=== PATIENT | male | born 1985 | race Caucasian/White ===

== ENCOUNTER 2017-10-06 14:31 | Inpatient (IN) | payer OTHER ==
[~2017-10-06] VITALS: Ht 180.3 cm; Wt 94.3 kg
[2017-10-06] MEDS ORDERED: LOSA50TA37 PO (14:44)
[2017-10-06 16:52] LABS: APPEARANCE,URINE CLEAR (CLEAR); GLUCOSE, URINE (UA) NEGATIVE (NEGATIVE); KETONES,URINE NEGATIVE (NEGATIVE); LEUKOCYTE ESTERASE ,URINE NEGATIVE (NEGATIVE); OCCULT BLOOD,URINE NEGATIVE (NEGATIVE); PH,URINE 7.5 (5.0-8.0); PROTEIN,URINE NEGATIVE (NEGATIVE)
[2017-10-06 16:55] LABS: ANION GAP 10 mmol/L (8-16); BASOPHILS # (AUTO) 0.01 K/uL (0.00-0.20); BASOPHILS % (AUTO) 0.1 % (0.0-2.0); CALCIUM, TOTAL 7.7 mg/dL (8.8-10.5); CARBON DIOXIDE 26 mmol/L (22-29); CHLORIDE 98 mmol/L (98-107); CREATININE 1.09 mg/dL (0.60-1.30); EOSINOPHILS % (AUTO) 0.69 % (1.0-6.0); GLOMERULAR FILTR. RATE CALC > 60 mL/min (>60); HEMATOCRIT 39.2 % (41-53); HEMOGLOBIN 12.2 g/dL (13.5-17.5); LYMPHOCYTES # (AUTO) 1.2 K/uL (1.0-4.8); LYMPHOCYTES % (AUTO) 8.3 % (22.0-44.0); MEAN CORPUSCULAR HEMOGLOBIN 23.7 pg (26.0-34.0); MEAN CORPUSCULAR HGB CONC 31.1 G/dL (31.0-37.0); MEAN CORPUSCULAR VOLUME 76 fL (80-100); MONOCYTES # (AUTO) 0.8 K/uL (0.1-1.0); MONOCYTES % (AUTO) 5.8 % (2.0-9.0); NEUTROPHILS # (AUTO) 12.1 K/uL (1.8-7.7); NEUTROPHILS % (AUTO) 85.2 % (40.0-70.0); PLATELET COUNT (AUTO) 246 K/uL (150-450); POTASSIUM 3.1 mmol/L (3.5-5.1); RED BLOOD CELL COUNT(AUTO) 5.14 MIL/uL (4.50-5.90); RED CELL DISTRIBUTION WIDTH 18.7 % (11.5-14.5); SODIUM SERUM 134 mmol/L (136-145); UREA NITROGEN, BLOOD 11 mg/dL (7-18); WHITE BLOOD COUNT (AUTO) 14.3 K/uL (4.5-11.0)
[2017-10-06 17:00] LABS: ADD UA MICROSCOPIC NO
[2017-10-06 17:06] LABS: INR 1.2 (0.9-1.1); PROTHROMBIN TIME 12.3 SEC (9.4-11.6)
[2017-10-06 17:15] LABS: B-TYPE NATRIURETIC PEPTIDE 2020 pg/mL (0-100)
[2017-10-06 17:18] LABS: ALANINE AMINOTRANSFERASE 521 U/L (12-78); ALBUMIN 2.5 g/dL (3.4-5.0); ASPARTATE AMINOTRANSFERASE 90 U/L (15-37); BILIRUBIN,TOTAL 2.4 mg/dL (0.1-1.0); CREATINE KINASE MB 1.9 ng/mL (0-5); CREATINE KINASE, TOTAL 98 U/L (39-308); TOTAL PROTEIN, SERUM 7.4 g/dL (6.4-8.2)
[2017-10-06 17:51] LABS: RBC MORPHOLOGY COMMENT ABNORMAL RBC MORPH
[2017-10-06] MEDS ORDERED: ASPIRIN 325 MG TABLET PO ONE (19:30)
[2017-10-06] MEDS ORDERED: PIPERACILLIN/TAZO 3.375 GM/D5W 50 ML IV ONE (19:30)
[2017-10-06] MEDS ORDERED: FUROSEMIDE 40 MG/4 ML VIAL IVP ONE (19:30)
[2017-10-06] MEDS ORDERED: HYDROCODONE/ACETAMINOPHEN 5-325 MG TABLET PO PRN (20:30)
[2017-10-06] MEDS ORDERED: POTASSIUM CHLORIDE 20 MEQ ER TABLET PO ONE (20:30)
[2017-10-06] MEDS ORDERED: ACETAMINOPHEN 325 MG TABLET PO PRN (20:30)
[2017-10-06] MEDS ORDERED: ONDANSETRON HCL 4 MG/2 ML VIAL IVP PRN (20:30)
[2017-10-06] MEDS ORDERED: 0.9% SODIUM CHLORIDE 10 ML SYRINGE IVP PRN (20:30)
[2017-10-06] MEDS ORDERED: MAGNESIUM HYDROXIDE SUSPENSION 30 ML UDCUP PO PRN (21:15)
[2017-10-06 22:06] VITALS: BP 147/97
[2017-10-06] MEDS: ATORVASTATIN CALCIUM 20 MG TABLET PO SCH (22:35)
[2017-10-06] MEDS: CARVEDILOL 6.25 MG TABLET PO SCH (22:36)
[2017-10-07] VITALS (7 sets, daily range): BP systolic 109–128; BP diastolic 61–85
[2017-10-07] MEDS ORDERED: INFLUENZA VIRUS VACCINE QVS 2017-18 (3YR+)/PF 60 MCG/0.5 ML SYRINGE IM ONE (00:30)
[2017-10-07] MEDS: HEPARIN SODIUM,PORCINE 5,000 UNITS/ML VIAL SQ SCH ×3 (00:46→16:17)
[2017-10-07 07:06] LABS: ALANINE AMINOTRANSFERASE 401 U/L (12-78); ALBUMIN 2.3 g/dL (3.4-5.0); ANION GAP 10 mmol/L (8-16); ASPARTATE AMINOTRANSFERASE 69 U/L (15-37); BILIRUBIN,TOTAL 2.4 mg/dL (0.1-1.0); CALCIUM, TOTAL 7.6 mg/dL (8.8-10.5); CARBON DIOXIDE 25 mmol/L (22-29); CHLORIDE 100 mmol/L (98-107); CREATININE 1.09 mg/dL (0.60-1.30); GLOMERULAR FILTR. RATE CALC > 60 mL/min (>60); POTASSIUM 3.7 mmol/L (3.5-5.1); SODIUM SERUM 135 mmol/L (136-145); TOTAL PROTEIN, SERUM 7.1 g/dL (6.4-8.2); UREA NITROGEN, BLOOD 14 mg/dL (7-18)
[2017-10-07] MEDS: FUROSEMIDE 40 MG/4 ML VIAL IVP SCH (08:40)
[2017-10-07] MEDS: CARVEDILOL 6.25 MG TABLET PO SCH ×2 (08:41→20:25)
[2017-10-07] MEDS: PANTOPRAZOLE SODIUM 40 MG DR TABLET PO SCH (08:41)
[2017-10-07] MEDS: ASPIRIN 81 MG CHEWABLE TABLET PO SCH (08:41)
[2017-10-07] MEDS: DOCUSATE SODIUM 100 MG CAPSULE PO SCH ×2 (08:41→20:25)
[2017-10-07 09:34] LABS: BASOPHILS % (AUTO) 0.5 % (0.0-2.0); HEMATOCRIT 37.7 % (41-53); HEMOGLOBIN 11.9 g/dL (13.5-17.5); LYMPHOCYTES # (AUTO) 1.8 K/uL (1.0-4.8); LYMPHOCYTES % (AUTO) 13.6 % (22.0-44.0); MEAN CORPUSCULAR HGB CONC 31.5 G/dL (31.0-37.0); MEAN CORPUSCULAR VOLUME 76 fL (80-100); MONOCYTES # (AUTO) 0.5 K/uL (0.1-1.0); MONOCYTES % (AUTO) 3.4 % (2.0-9.0); NEUTROPHILS # (AUTO) 10.7 K/uL (1.8-7.7); NEUTROPHILS % (AUTO) 80.5 % (40.0-70.0); PLATELET COUNT (AUTO) 277 K/uL (150-450); RED BLOOD CELL COUNT(AUTO) 4.96 MIL/uL (4.50-5.90); RED CELL DISTRIBUTION WIDTH 18.7 % (11.5-14.5); WHITE BLOOD COUNT (AUTO) 13.3 K/uL (4.5-11.0)
[2017-10-07] MEDS: POTASSIUM CHLORIDE 20 MEQ ER TABLET PO PRN (09:54)
[2017-10-07 10:17] LABS: RBC MORPHOLOGY COMMENT ABNORMAL RBC MORPH
[2017-10-07] MEDS: ATORVASTATIN CALCIUM 20 MG TABLET PO SCH (20:25)
[2017-10-08 04:55] VITALS: BP 133/68
[2017-10-08 07:35] LABS: BASOPHILS % (AUTO) 0.3 % (0.0-2.0); EOSINOPHILS % (AUTO) 1.3 % (1.0-6.0); HEMATOCRIT 39.4 % (41-53); HEMOGLOBIN 12.4 g/dL (13.5-17.5); LYMPHOCYTES # (AUTO) 2.2 K/uL (1.0-4.8); LYMPHOCYTES % (AUTO) 14.4 % (22.0-44.0); MEAN CORPUSCULAR HEMOGLOBIN 23.9 pg (26.0-34.0); MEAN CORPUSCULAR HGB CONC 31.5 G/dL (31.0-37.0); MEAN CORPUSCULAR VOLUME 76 fL (80-100); MONOCYTES % (AUTO) 6.4 % (2.0-9.0); NEUTROPHILS # (AUTO) 12.1 K/uL (1.8-7.7); NEUTROPHILS % (AUTO) 77.6 % (40.0-70.0); RED CELL DISTRIBUTION WIDTH 18.9 % (11.5-14.5); WHITE BLOOD COUNT (AUTO) 15.6 K/uL (4.5-11.0)
[2017-10-08 07:51] VITALS: BP 130/71
[2017-10-08 07:58] LABS: ANION GAP 7 mmol/L (8-16); CARBON DIOXIDE 25 mmol/L (22-29); CHLORIDE 98 mmol/L (98-107); GLOMERULAR FILTR. RATE CALC > 60 mL/min (>60); POTASSIUM 4.3 mmol/L (3.5-5.1); SODIUM SERUM 130 mmol/L (136-145); UREA NITROGEN, BLOOD 19 mg/dL (7-18)
[2017-10-08 08:38] LABS: PLATELET COUNT (AUTO) 281 K/uL (150-450); RBC MORPHOLOGY COMMENT ABNORMAL RBC MORPH
[2017-10-08] MEDS: CARVEDILOL 6.25 MG TABLET PO SCH (09:00)
[2017-10-08] MEDS: DOCUSATE SODIUM 100 MG CAPSULE PO SCH ×2 (09:01→21:17)
[2017-10-08] MEDS: HEPARIN SODIUM,PORCINE 5,000 UNITS/ML VIAL SQ SCH ×4 (09:01→23:34)
[2017-10-08] MEDS: ASPIRIN 81 MG CHEWABLE TABLET PO SCH (09:01)
[2017-10-08] MEDS: PANTOPRAZOLE SODIUM 40 MG DR TABLET PO SCH (09:01)
[2017-10-08] MEDS: FUROSEMIDE 40 MG/4 ML VIAL IVP SCH (09:02)
[2017-10-08] MEDS: MUPIROCIN CALCIUM 2% 22 GM OINTMENT NASAL SCH ×2 (10:51→21:18)
[2017-10-08 11:37] VITALS: BP 86/60
[2017-10-08 13:01] VITALS: BP 98/62
[2017-10-08] MEDS ORDERED: AMIODARONE HCL 150 MG in DEXTROSE 5%-WATER 97 ML IV ONE (13:15)
[2017-10-08] MEDS ORDERED: AMIODARONE HCL 360 MG in DEXTROSE 5%-WATER 242.8 ML IV ONE ×2 (13:15→21:00)
[2017-10-08] MEDS ORDERED: SODIUM CHLORIDE 0.9% 250 ML IV ONE ×3 (14:30→16:15)
[2017-10-08 16:10] VITALS: BP 105/73
[2017-10-08] MEDS ORDERED: AMIODARONE HCL 540 MG in DEXTROSE 5%-WATER 239.2 ML IV ONE (19:15)
[2017-10-08 20:06] VITALS: BP 98/74
[2017-10-08] MEDS: ATORVASTATIN CALCIUM 20 MG TABLET PO SCH (21:17)
[2017-10-08] MEDS ORDERED: SODIUM CHLORIDE 0.9% 500 ML IV ONE (21:24)
[2017-10-09] VITALS (7 sets, daily range): BP systolic 95–138; BP diastolic 65–83
[2017-10-09] MEDS: ACETAMINOPHEN 325 MG TABLET PO PRN (00:02)
[2017-10-09] MEDS ORDERED: AMIODARONE HCL 540 MG in DEXTROSE 5%-WATER 239.2 ML IV ONE (03:00)
[2017-10-09 06:27] LABS: BASOPHILS % (AUTO) 0.6 % (0.0-2.0); EOSINOPHILS % (AUTO) 1.1 % (1.0-6.0); HEMATOCRIT 37.3 % (41-53); HEMOGLOBIN 11.8 g/dL (13.5-17.5); LYMPHOCYTES # (AUTO) 2.8 K/uL (1.0-4.8); LYMPHOCYTES % (AUTO) 20.8 % (22.0-44.0); MEAN CORPUSCULAR HEMOGLOBIN 24.1 pg (26.0-34.0); MEAN CORPUSCULAR HGB CONC 31.8 G/dL (31.0-37.0); MEAN CORPUSCULAR VOLUME 76 fL (80-100); MONOCYTES % (AUTO) 7.6 % (2.0-9.0); NEUTROPHILS # (AUTO) 9.4 K/uL (1.8-7.7); NEUTROPHILS % (AUTO) 69.9 % (40.0-70.0); PLATELET COUNT (AUTO) 260 K/uL (150-450); RED BLOOD CELL COUNT(AUTO) 4.91 MIL/uL (4.50-5.90); RED CELL DISTRIBUTION WIDTH 18.8 % (11.5-14.5); WHITE BLOOD COUNT (AUTO) 13.5 K/uL (4.5-11.0)
[2017-10-09 06:38] LABS: ANION GAP 7 mmol/L (8-16); CALCIUM, TOTAL 7.9 mg/dL (8.8-10.5); CARBON DIOXIDE 24 mmol/L (22-29); CHLORIDE 99 mmol/L (98-107); GLOMERULAR FILTR. RATE CALC > 60 mL/min (>60); PHOSPHORUS 3.7 mg/dL (2.5-4.9); POTASSIUM 4.3 mmol/L (3.5-5.1); SODIUM SERUM 130 mmol/L (136-145); UREA NITROGEN, BLOOD 27 mg/dL (7-18)
[2017-10-09] MEDS ORDERED: ADENOSINE 3 MG/ML 2 ML VIAL IVP ONE (09:00)
[2017-10-09] MEDS ORDERED: SODIUM CHLORIDE 0.9% 250 ML IV ONE (09:00)
[2017-10-09] MEDS: HEPARIN SODIUM,PORCINE 5,000 UNITS/ML VIAL SQ SCH ×3 (09:36→23:31)
[2017-10-09] MEDS: ASPIRIN 81 MG CHEWABLE TABLET PO SCH (09:37)
[2017-10-09] MEDS: DOCUSATE SODIUM 100 MG CAPSULE PO SCH ×2 (09:37→20:21)
[2017-10-09] MEDS: PANTOPRAZOLE SODIUM 40 MG DR TABLET PO SCH (09:37)
[2017-10-09] MEDS: MUPIROCIN CALCIUM 2% 22 GM OINTMENT NASAL SCH ×2 (09:38→20:21)
[2017-10-09] MEDS ORDERED: AMIODARONE HCL 750 MG in DEXTROSE 5%-WATER 485 ML IV SCH (13:30)
[2017-10-09] MEDS: ATORVASTATIN CALCIUM 20 MG TABLET PO SCH (20:21)
[2017-10-09] MEDS: AMIODARONE HCL 750 MG in DEXTROSE 5%-WATER 485 ML IV SCH (21:16)
[2017-10-10 04:12] VITALS: BP 121/85
[2017-10-10] MEDS: HEPARIN SODIUM,PORCINE 5,000 UNITS/ML VIAL SQ SCH ×3 (07:16→20:13)
[2017-10-10] MEDS: ASPIRIN 81 MG CHEWABLE TABLET PO SCH (07:16)
[2017-10-10] MEDS: DOCUSATE SODIUM 100 MG CAPSULE PO SCH ×2 (07:17→20:12)
[2017-10-10] MEDS: PANTOPRAZOLE SODIUM 40 MG DR TABLET PO SCH (07:17)
[2017-10-10] MEDS: MUPIROCIN CALCIUM 2% 22 GM OINTMENT NASAL SCH ×2 (07:54→20:12)
[2017-10-10 12:11] VITALS: BP 125/80
[2017-10-10] MEDS ORDERED: LIDOCAINE HCL/PF 1% 30 ML VIAL ONE (13:20)
[2017-10-10] MEDS ORDERED: SODIUM BICARBONATE 50 MEQ/50 ML VIAL ONE (13:21)
[2017-10-10] MEDS ORDERED: HEPARIN SODIUM 1000 UNITS/NS 500 ML ONE (13:21)
[2017-10-10] MEDS ORDERED: IOHEXOL 300 MG/ML 150 ML VIAL ONE (13:21)
[2017-10-10 15:21] VITALS: BP 118/71
[2017-10-10] MEDS ORDERED: LORazepam 0.5 MG TABLET PO ONE (18:15)
[2017-10-10 19:34] VITALS: BP 123/78
[2017-10-10] MEDS: ATORVASTATIN CALCIUM 20 MG TABLET PO SCH (20:12)
[2017-10-10] MEDS: AMIODARONE HCL 750 MG in DEXTROSE 5%-WATER 485 ML IV SCH (21:10)
[2017-10-10 23:44] VITALS: BP 126/60
[2017-10-10] MEDS: ZOLPIDEM TARTRATE 5 MG TABLET PO PRN (23:47)
[2017-10-11] VITALS (14 sets, daily range): BP systolic 102–132; BP diastolic 35–88
[2017-10-11 06:47] LABS: HEMATOCRIT 38.3 % (41-53); HEMOGLOBIN 12.3 g/dL (13.5-17.5); MEAN CORPUSCULAR HEMOGLOBIN 24.2 pg (26.0-34.0); MEAN CORPUSCULAR HGB CONC 32.1 G/dL (31.0-37.0); MEAN CORPUSCULAR VOLUME 75 fL (80-100); PLATELET COUNT (AUTO) 319 K/uL (150-450); RED BLOOD CELL COUNT(AUTO) 5.08 MIL/uL (4.50-5.90); RED CELL DISTRIBUTION WIDTH 19.2 % (11.5-14.5); WHITE BLOOD COUNT (AUTO) 13.9 K/uL (4.5-11.0)
[2017-10-11 07:17] LABS: CALCIUM, TOTAL 8.2 mg/dL (8.8-10.5); CREATININE 1.35 mg/dL (0.60-1.30); POTASSIUM 5.5 mmol/L (3.5-5.1)
[2017-10-11 07:46] LABS: BAND NEUTROPHILS % (MANUAL) 11 % (1-5); LYMPHOCYTES % (MANUAL) 21 % (22-44); TOTAL CELLS COUNTED 100
[2017-10-11 07:47] LABS: RBC MORPHOLOGY COMMENT ABNORMAL RBC MORPH
[2017-10-11] MEDS: HEPARIN SODIUM,PORCINE 5,000 UNITS/ML VIAL SQ SCH ×2 (08:00→15:55)
[2017-10-11] MEDS ORDERED: FentaNYL CITRATE-PF 100 MCG/2 ML VIAL ONE (08:32)
[2017-10-11] MEDS ORDERED: MIDAZOLAM HCL 2 MG/2 ML VIAL ONE (08:33)
[2017-10-11] MEDS ORDERED: VERAPAMIL HCL 2.5 MG/ML 2 ML VIAL ONE (08:33)
[2017-10-11] MEDS ORDERED: HEPARIN SODIUM,PORCINE 1,000 UNITS/ML 10 ML VIAL ONE (08:33)
[2017-10-11] MEDS ORDERED: NITROGLYCERIN 50 MG/D5% WATER 0 ML ONE (08:33)
[2017-10-11] MEDS ORDERED: IOHEXOL 300 MG/ML 150 ML VIAL ONE (08:34)
[2017-10-11] MEDS ORDERED: LIDOCAINE HCL/PF 1% 30 ML VIAL ONE (08:34)
[2017-10-11] MEDS ORDERED: IOHEXOL 300 MG/ML 100 ML VIAL ONE (08:35)
[2017-10-11] MEDS ORDERED: SODIUM BICARBONATE 50 MEQ/50 ML VIAL ONE (08:35)
[2017-10-11] MEDS ORDERED: HEPARIN SODIUM 1000 UNITS/NS 500 ML ONE (08:35)
[2017-10-11] MEDS: DOCUSATE SODIUM 100 MG CAPSULE PO SCH ×2 (09:00→21:01)
[2017-10-11] MEDS: PANTOPRAZOLE SODIUM 40 MG DR TABLET PO SCH (09:00)
[2017-10-11] MEDS: ASPIRIN 81 MG CHEWABLE TABLET PO SCH (09:00)
[2017-10-11] MEDS: MUPIROCIN CALCIUM 2% 22 GM OINTMENT NASAL SCH (09:10)
[2017-10-11] MEDS ORDERED: SODIUM CHLORIDE 0.9% 500 ML IV ONE (09:48)
[2017-10-11] MEDS ORDERED: MIDAZOLAM HCL 2 MG/2 ML VIAL IVP ONE (09:50)
[2017-10-11] MEDS ORDERED: FentaNYL CITRATE-PF 100 MCG/2 ML VIAL IVP ONE (09:50)
[2017-10-11] MEDS ORDERED: LIDOCAINE 1% 30 ML/SOD BICARB 8.4% 4 ML SQ ONE (09:52)
[2017-10-11] MEDS ORDERED: HEPARIN SODIUM 1000 UNITS/NS 1,000 ML IARTER ONE (09:58)
[2017-10-11] MEDS ORDERED: IOHEXOL 300 MG/ML 150 ML VIAL IARTER ONE (10:19)
[2017-10-11] MEDS ORDERED: FUROSEMIDE 40 MG/4 ML VIAL IVP ONE (10:31)
[2017-10-11] MEDS ORDERED: FUROSEMIDE 40 MG/4 ML VIAL ONE (10:31)
[2017-10-11] MEDS: BUMETANIDE 0.25 MG/ML 4 ML VIAL IVP SCH ×2 (15:54→21:01)
[2017-10-11] MEDS: AMIODARONE HCL 200 MG TABLET PO SCH ×2 (15:55→21:01)
[2017-10-11] MEDS: ATORVASTATIN CALCIUM 20 MG TABLET PO SCH (21:01)
[2017-10-11] MEDS: ZOLPIDEM TARTRATE 5 MG TABLET PO PRN (21:02)
[2017-10-11] MEDS: AMIODARONE HCL 750 MG in DEXTROSE 5%-WATER 485 ML IV SCH (23:50)
[2017-10-12] VITALS: BP 102/68
[2017-10-12] MEDS: HEPARIN SODIUM,PORCINE 5,000 UNITS/ML VIAL SQ SCH ×4 (00:44→23:29)
[2017-10-12] MEDS: MUPIROCIN CALCIUM 2% 22 GM OINTMENT NASAL SCH ×2 (00:44→09:07)
[2017-10-12 04:00] VITALS: BP 116/83
[2017-10-12 05:10] LABS: BASOPHILS % (AUTO) 0.2 % (0.0-2.0); EOSINOPHILS % (AUTO) 0.3 % (1.0-6.0); HEMATOCRIT 38.8 % (41-53); HEMOGLOBIN 12.4 g/dL (13.5-17.5); LYMPHOCYTES # (AUTO) 3.5 K/uL (1.0-4.8); LYMPHOCYTES % (AUTO) 18.4 % (22.0-44.0); MEAN CORPUSCULAR HEMOGLOBIN 24.3 pg (26.0-34.0); MEAN CORPUSCULAR VOLUME 76 fL (80-100); MONOCYTES # (AUTO) 0.4 K/uL (0.1-1.0); MONOCYTES % (AUTO) 2.2 % (2.0-9.0); NEUTROPHILS # (AUTO) 15.2 K/uL (1.8-7.7); NEUTROPHILS % (AUTO) 78.9 % (40.0-70.0); PLATELET COUNT (AUTO) 318 K/uL (150-450); RED BLOOD CELL COUNT(AUTO) 5.11 MIL/uL (4.50-5.90); RED CELL DISTRIBUTION WIDTH 19.2 % (11.5-14.5); WHITE BLOOD COUNT (AUTO) 19.2 K/uL (4.5-11.0)
[2017-10-12 05:11] LABS: CALCIUM, TOTAL 8.4 mg/dL (8.8-10.5); CREATININE 1.52 mg/dL (0.60-1.30); POTASSIUM 5.2 mmol/L (3.5-5.1)
[2017-10-12 06:49] LABS: RBC MORPHOLOGY COMMENT ABNORMAL RBC MORPH
[2017-10-12 08:00] VITALS: BP 125/70
[2017-10-12] MEDS: AMIODARONE HCL 200 MG TABLET PO SCH ×3 (09:04→21:12)
[2017-10-12] MEDS: DOCUSATE SODIUM 100 MG CAPSULE PO SCH ×2 (09:04→21:12)
[2017-10-12] MEDS: ASPIRIN 81 MG CHEWABLE TABLET PO SCH (09:04)
[2017-10-12] MEDS: PANTOPRAZOLE SODIUM 40 MG DR TABLET PO SCH (09:05)
[2017-10-12] MEDS: BUMETANIDE 0.25 MG/ML 4 ML VIAL IVP SCH ×3 (09:05→21:12)
[2017-10-12 12:00] VITALS: BP 137/81
[2017-10-12] MEDS: [UNRECOGNIZED DRUG - OTHER] IV SCH (15:01)
[2017-10-12] MEDS: MILRINONE LACT IV SCH (15:01)
[2017-10-12 16:00] VITALS: BP 99/71
[2017-10-12 20:00] VITALS: BP 119/94
[2017-10-12] MEDS: ZOLPIDEM TARTRATE 5 MG TABLET PO PRN (21:12)
[2017-10-12] MEDS: ATORVASTATIN CALCIUM 20 MG TABLET PO SCH (21:12)
[2017-10-12] MEDS: AMIODARONE HCL 750 MG in DEXTROSE 5%-WATER 485 ML IV SCH (21:13)
[2017-10-13] VITALS: BP 124/79
[2017-10-13] MEDS: [UNRECOGNIZED DRUG - OTHER] IV SCH ×2 (02:22→16:27)
[2017-10-13] MEDS: MILRINONE LACT IV SCH ×2 (02:22→16:27)
[2017-10-13 04:00] VITALS: BP 138/52
[2017-10-13 08:00] VITALS: BP 135/83
[2017-10-13] MEDS: HEPARIN SODIUM,PORCINE 5,000 UNITS/ML VIAL SQ SCH ×2 (09:22→16:33)
[2017-10-13] MEDS: BUMETANIDE 0.25 MG/ML 4 ML VIAL IVP SCH ×3 (09:22→19:46)
[2017-10-13] MEDS: ASPIRIN 81 MG CHEWABLE TABLET PO SCH (09:23)
[2017-10-13] MEDS: AMIODARONE HCL 200 MG TABLET PO SCH ×3 (09:24→19:46)
[2017-10-13] MEDS: DOCUSATE SODIUM 100 MG CAPSULE PO SCH ×2 (09:24→19:46)
[2017-10-13] MEDS: PANTOPRAZOLE SODIUM 40 MG DR TABLET PO SCH (09:24)
[2017-10-13 12:00] VITALS: BP 112/83
[2017-10-13 16:00] VITALS: BP 105/64
[2017-10-13 18:05] LABS: ANION GAP 9 mmol/L (8-16); CALCIUM, TOTAL 8.1 mg/dL (8.8-10.5); CARBON DIOXIDE 29 mmol/L (22-29); CHLORIDE 98 mmol/L (98-107); CREATININE 1.31 mg/dL (0.60-1.30); GLOMERULAR FILTR. RATE CALC > 60 mL/min (>60); POTASSIUM 3.5 mmol/L (3.5-5.1); SODIUM SERUM 136 mmol/L (136-145); UREA NITROGEN, BLOOD 27 mg/dL (7-18)
[2017-10-13] MEDS: ATORVASTATIN CALCIUM 20 MG TABLET PO SCH (19:46)
[2017-10-13] MEDS: ZOLPIDEM TARTRATE 5 MG TABLET PO PRN (19:46)
[2017-10-13] MEDS: POTASSIUM CHLORIDE 20 MEQ ER TABLET PO PRN (19:47)
[2017-10-13 20:00] VITALS: BP 122/72
[2017-10-13] MEDS: AMIODARONE HCL 750 MG in DEXTROSE 5%-WATER 485 ML IV SCH (21:12)
[2017-10-14] VITALS: BP 120/79
[2017-10-14] MEDS: HEPARIN SODIUM,PORCINE 5,000 UNITS/ML VIAL SQ SCH ×3 (00:01→15:42)
[2017-10-14 04:00] VITALS: BP 131/66
[2017-10-14] MEDS: [UNRECOGNIZED DRUG - OTHER] IV SCH (05:53)
[2017-10-14] MEDS: MILRINONE LACT IV SCH (05:53)
[2017-10-14 06:16] LABS: ANION GAP 5 mmol/L (8-16); CALCIUM, TOTAL 7.9 mg/dL (8.8-10.5); CARBON DIOXIDE 30 mmol/L (22-29); CHLORIDE 97 mmol/L (98-107); CREATININE 1.26 mg/dL (0.60-1.30); GLOMERULAR FILTR. RATE CALC > 60 mL/min (>60); POTASSIUM 3.4 mmol/L (3.5-5.1); SODIUM SERUM 132 mmol/L (136-145); UREA NITROGEN, BLOOD 20 mg/dL (7-18)
[2017-10-14 08:00] VITALS: BP 110/79
[2017-10-14] MEDS: AMIODARONE HCL 200 MG TABLET PO SCH ×3 (08:24→21:27)
[2017-10-14] MEDS: BUMETANIDE 0.25 MG/ML 4 ML VIAL IVP SCH ×3 (08:24→21:28)
[2017-10-14] MEDS: PANTOPRAZOLE SODIUM 40 MG DR TABLET PO SCH (08:25)
[2017-10-14] MEDS: ASPIRIN 81 MG CHEWABLE TABLET PO SCH (08:25)
[2017-10-14] MEDS: DOCUSATE SODIUM 100 MG CAPSULE PO SCH ×2 (08:25→21:27)
[2017-10-14] MEDS: POTASSIUM CHLORIDE 20 MEQ ER TABLET PO PRN (08:26)
[2017-10-14] MEDS ORDERED: IVABRADINE 5 MG PO SCH (09:00)
[2017-10-14] MEDS ORDERED: MAGNESIUM OXIDE 400 MG TABLET PO PRN (11:45)
[2017-10-14] MEDS ORDERED: MAGNESIUM SULFATE 4 GM/WATER 100 ML IV PRN (11:45)
[2017-10-14 12:00] VITALS: BP 114/64
[2017-10-14] MEDS: MAGNESIUM SULFATE 2 GM in DEXTROSE 5%-WATER 50 ML IV PRN (13:01)
[2017-10-14 16:00] VITALS: BP 128/76
[2017-10-14] MEDS: IVABRADINE HCL 5 MG TABLET PO SCH (18:03)
[2017-10-14 20:00] VITALS: BP 105/66
[2017-10-14] MEDS: ATORVASTATIN CALCIUM 20 MG TABLET PO SCH (21:27)
[2017-10-14] MEDS: AMIODARONE HCL 750 MG in DEXTROSE 5%-WATER 485 ML IV SCH (21:28)
[2017-10-14] MEDS: ZOLPIDEM TARTRATE 5 MG TABLET PO PRN (22:24)
[2017-10-15] VITALS: BP 144/68
[2017-10-15] MEDS: HEPARIN SODIUM,PORCINE 5,000 UNITS/ML VIAL SQ SCH ×4 (00:16→23:23)
[2017-10-15] MEDS: MILRINONE LACT IV SCH (02:42)
[2017-10-15] MEDS: [UNRECOGNIZED DRUG - OTHER] IV SCH (02:42)
[2017-10-15 04:00] VITALS: BP 124/73
[2017-10-15 05:07] LABS: MAGNESIUM 1.6 mg/dL (1.80-2.40)
[2017-10-15 06:59] LABS: CALCIUM, TOTAL 8.1 mg/dL (8.8-10.5); CREATININE 1.47 mg/dL (0.60-1.30); POTASSIUM 3.8 mmol/L (3.5-5.1)
[2017-10-15 08:00] VITALS: BP 125/74
[2017-10-15] MEDS: AMIODARONE HCL 200 MG TABLET PO SCH ×3 (08:24→21:29)
[2017-10-15] MEDS: BUMETANIDE 0.25 MG/ML 4 ML VIAL IVP SCH ×3 (08:24→21:29)
[2017-10-15] MEDS: POTASSIUM CHLORIDE 20 MEQ ER TABLET PO PRN ×3 (08:24→18:24)
[2017-10-15] MEDS: PANTOPRAZOLE SODIUM 40 MG DR TABLET PO SCH (08:24)
[2017-10-15] MEDS: DOCUSATE SODIUM 100 MG CAPSULE PO SCH ×2 (08:24→21:29)
[2017-10-15] MEDS: ASPIRIN 81 MG CHEWABLE TABLET PO SCH (08:25)
[2017-10-15] MEDS: IVABRADINE HCL 5 MG TABLET PO SCH ×2 (09:11→16:31)
[2017-10-15] MEDS: MAGNESIUM SULFATE 2 GM in DEXTROSE 5%-WATER 50 ML IV PRN (09:27)
[2017-10-15] MEDS: ACETAMINOPHEN 325 MG TABLET PO PRN (09:28)
[2017-10-15 12:00] VITALS: BP 122/70
[2017-10-15 16:00] VITALS: BP 112/72
[2017-10-15 20:00] VITALS: BP 117/79
[2017-10-15] MEDS: ATORVASTATIN CALCIUM 20 MG TABLET PO SCH (21:29)
[2017-10-15] MEDS: ZOLPIDEM TARTRATE 5 MG TABLET PO PRN (21:29)
[2017-10-15] MEDS: AMIODARONE HCL 750 MG in DEXTROSE 5%-WATER 485 ML IV SCH (21:30)
[2017-10-16] VITALS (8 sets, daily range): BP systolic 98–120; BP diastolic 48–77
[2017-10-16] MEDS: [UNRECOGNIZED DRUG - OTHER] IV SCH (04:22)
[2017-10-16] MEDS: MILRINONE LACT IV SCH (04:22)
[2017-10-16 05:19] LABS: HEMATOCRIT 33.7 % (41-53); HEMOGLOBIN 10.6 g/dL (13.5-17.5); MEAN CORPUSCULAR HEMOGLOBIN 24.3 pg (26.0-34.0); MEAN CORPUSCULAR HGB CONC 31.5 G/dL (31.0-37.0); MEAN CORPUSCULAR VOLUME 77 fL (80-100); PLATELET COUNT (AUTO) 313 K/uL (150-450); RED BLOOD CELL COUNT(AUTO) 4.37 MIL/uL (4.50-5.90); RED CELL DISTRIBUTION WIDTH 19.9 % (11.5-14.5); WHITE BLOOD COUNT (AUTO) 14.8 K/uL (4.5-11.0)
[2017-10-16 05:22] LABS: ANION GAP 9 mmol/L (8-16); CALCIUM, TOTAL 8.2 mg/dL (8.8-10.5); CARBON DIOXIDE 26 mmol/L (22-29); CHLORIDE 95 mmol/L (98-107); CREATININE 1.31 mg/dL (0.60-1.30); GLOMERULAR FILTR. RATE CALC > 60 mL/min (>60); POTASSIUM 4.3 mmol/L (3.5-5.1); SODIUM SERUM 130 mmol/L (136-145); UREA NITROGEN, BLOOD 26 mg/dL (7-18)
[2017-10-16 07:16] LABS: BASOPHILS % (MANUAL) 1 % (0-2); LYMPHOCYTES % (MANUAL) 14 % (22-44); TOTAL CELLS COUNTED 100; WBC MORPHOLOGY TOXIC VACUOLATION
[2017-10-16] MEDS: PANTOPRAZOLE SODIUM 40 MG DR TABLET PO SCH (08:14)
[2017-10-16] MEDS: AMIODARONE HCL 200 MG TABLET PO SCH ×3 (08:14→21:22)
[2017-10-16] MEDS: DOCUSATE SODIUM 100 MG CAPSULE PO SCH ×2 (08:14→21:22)
[2017-10-16] MEDS: ASPIRIN 81 MG CHEWABLE TABLET PO SCH (08:14)
[2017-10-16] MEDS: HEPARIN SODIUM,PORCINE 5,000 UNITS/ML VIAL SQ SCH ×3 (08:15→23:12)
[2017-10-16] MEDS: BUMETANIDE 0.25 MG/ML 4 ML VIAL IVP SCH ×3 (08:15→21:22)
[2017-10-16] MEDS: IVABRADINE HCL 5 MG TABLET PO SCH ×3 (08:15→18:24)
[2017-10-16] MEDS: AMIODARONE HCL 750 MG in DEXTROSE 5%-WATER 485 ML IV SCH (21:00)
[2017-10-16] MEDS: ATORVASTATIN CALCIUM 20 MG TABLET PO SCH (21:22)
[2017-10-16] MEDS: ZOLPIDEM TARTRATE 5 MG TABLET PO PRN (21:23)
[2017-10-17 04:37] VITALS: BP 102/68
[2017-10-17 07:39] VITALS: BP 97/71
[2017-10-17] MEDS: ASPIRIN 81 MG CHEWABLE TABLET PO SCH (08:04)
[2017-10-17] MEDS: DOCUSATE SODIUM 100 MG CAPSULE PO SCH ×2 (08:04→19:57)
[2017-10-17] MEDS: AMIODARONE HCL 200 MG TABLET PO SCH ×3 (08:04→19:57)
[2017-10-17] MEDS: HEPARIN SODIUM,PORCINE 5,000 UNITS/ML VIAL SQ SCH ×2 (08:04→16:40)
[2017-10-17] MEDS: IVABRADINE HCL 5 MG TABLET PO SCH ×2 (08:05→18:26)
[2017-10-17] MEDS: BUMETANIDE 0.25 MG/ML 4 ML VIAL IVP SCH ×3 (08:05→19:57)
[2017-10-17] MEDS: PANTOPRAZOLE SODIUM 40 MG DR TABLET PO SCH (08:10)
[2017-10-17] MEDS: OxyCODONE HCL/ACETAMINOPHEN 5-325 MG TABLET PO PRN ×2 (08:56→20:02)
[2017-10-17 11:27] VITALS: BP 93/70
[2017-10-17] MEDS ORDERED: SODIUM CHLORIDE 0.9% 500 ML IV ONE (13:00)
[2017-10-17 16:57] VITALS: BP 102/67
[2017-10-17] MEDS: ATORVASTATIN CALCIUM 20 MG TABLET PO SCH (19:57)
[2017-10-17 20:30] VITALS: BP 111/73
[2017-10-17] MEDS: AMIODARONE HCL 750 MG in DEXTROSE 5%-WATER 485 ML IV SCH (21:00)
[2017-10-18 00:47] VITALS: BP 108/64
[2017-10-18 05:10] VITALS: BP 90/48
[2017-10-18 06:59] LABS: MAGNESIUM 1.8 mg/dL (1.80-2.40)
[2017-10-18 07:50] VITALS: BP 99/69
[2017-10-18] MEDS: HEPARIN SODIUM,PORCINE 5,000 UNITS/ML VIAL SQ SCH ×4 (08:00→16:45)
[2017-10-18] MEDS: AMIODARONE HCL 200 MG TABLET PO SCH ×3 (08:04→20:12)
[2017-10-18] MEDS: ASPIRIN 81 MG CHEWABLE TABLET PO SCH (08:04)
[2017-10-18] MEDS: DOCUSATE SODIUM 100 MG CAPSULE PO SCH ×2 (08:05→20:12)
[2017-10-18] MEDS: PANTOPRAZOLE SODIUM 40 MG DR TABLET PO SCH (08:05)
[2017-10-18] MEDS: IVABRADINE HCL 5 MG TABLET PO SCH ×2 (08:05→18:08)
[2017-10-18] MEDS: BUMETANIDE 0.25 MG/ML 4 ML VIAL IVP SCH (08:06)
[2017-10-18 11:34] VITALS: BP 98/65
[2017-10-18 15:43] VITALS: BP 108/78
[2017-10-18 15:45] LABS: CALCIUM, TOTAL 8.2 mg/dL (8.8-10.5); CREATININE 1.46 mg/dL (0.60-1.30); POTASSIUM 4.1 mmol/L (3.5-5.1)
[2017-10-18 15:46] LABS: MAGNESIUM 2.1 mg/dL (1.80-2.40)
[2017-10-18] MEDS: ATORVASTATIN CALCIUM 20 MG TABLET PO SCH (20:12)
[2017-10-18] MEDS: BUMETANIDE 1 MG TABLET PO SCH (20:12)
[2017-10-18 20:58] VITALS: BP 102/61
[2017-10-19] MEDS: HEPARIN SODIUM,PORCINE 5,000 UNITS/ML VIAL SQ SCH ×2 (00:16→08:15)
[2017-10-19] MEDS: OxyCODONE HCL/ACETAMINOPHEN 5-325 MG TABLET PO PRN (00:17)
[2017-10-19 00:19] VITALS: BP 91/66
[2017-10-19 06:02] VITALS: BP 117/78
[2017-10-19 07:38] VITALS: BP 126/76
[2017-10-19] MEDS: IVABRADINE HCL 5 MG TABLET PO SCH (08:14)
[2017-10-19] MEDS: ASPIRIN 81 MG CHEWABLE TABLET PO SCH (08:15)
[2017-10-19] MEDS: PANTOPRAZOLE SODIUM 40 MG DR TABLET PO SCH (08:15)
[2017-10-19] MEDS: DOCUSATE SODIUM 100 MG CAPSULE PO SCH (08:16)
[2017-10-19] MEDS: BUMETANIDE 1 MG TABLET PO SCH (08:16)
[2017-10-19] MEDS: AMIODARONE HCL 200 MG TABLET PO SCH (08:16)
[2017-10-19 11:29] VITALS: BP 109/59
[2017-10-19] MEDS ORDERED: AMIODARONE HCL 200 MG TABLET PO SCH ×3 (14:00→21:00)
[2017-10-19] MEDS ORDERED: BUME1TAB17 PO ×2 (15:23→15:40)
[2017-10-19] MEDS ORDERED: IVAB5TAB PO ×2 (15:40→15:46)
[2017-10-19] MEDS ORDERED: LISI-660 PO (15:40)
[2017-10-19] MEDS ORDERED: ATOR20TA86 PO ×2 (15:40→15:44)
[2017-10-19] MEDS ORDERED: AMIO200T44 PO (15:42)
[2017-10-19] MEDS ORDERED: ASPI-1182 PO (15:44)
[2017-10-20] MEDS ORDERED: ASPIRIN 81 MG CHEWABLE TABLET PO SCH (09:00)
[2017-10-20] MEDS ORDERED: AMIODARONE HCL 200 MG TABLET PO SCH (09:00)
[2017-10-20] MEDS ORDERED: LISINOPRIL 5 MG TABLET PO SCH (09:00)
== END 2017-10-19 16:20 | disposition home or self-care (01) | DRG 192 ==
LOC: EMS 14:33 → 5N 20:50 → ICU 10-11 11:30 → 5S 10-16 16:05
PROVIDERS: ADMIT Internal Medicine; ATTEND Internal Medicine
PROC: 4A023N8 Measurement of Cardiac Sampling and Pressure, Bilateral, Percutaneous Approach (ICD-10-PCS; principal; 2017-10-11)
PROC: B2111ZZ Fluoroscopy of Multiple Coronary Arteries using Low Osmolar Contrast (ICD-10-PCS; 2017-10-11)
PROC: 4A1239Z Monitoring of Cardiac Output, Percutaneous Approach (ICD-10-PCS; 2017-10-11)
PROC: 02HV33Z Insertion of Infusion Device into Superior Vena Cava, Percutaneous Approach (ICD-10-PCS; 2017-10-14)
PROC: B548ZZA Ultrasonography of Superior Vena Cava, Guidance (ICD-10-PCS; 2017-10-14)
DX: I13.0 Hypertensive heart and chronic kidney disease with heart failure and stage 1 through stage 4 chronic kidney disease, or unspecified chronic kidney disease (principal); I21.4 Non-ST elevation (NSTEMI) myocardial infarction; I47.2 Ventricular tachycardia; E43 Unspecified severe protein-calorie malnutrition; I95.9 Hypotension, unspecified; I42.9 Cardiomyopathy, unspecified; L03.116 Cellulitis of left lower limb; I50.23 Acute on chronic systolic (congestive) heart failure; M10.9 Gout, unspecified; F12.90 Cannabis use, unspecified, uncomplicated; F15.90 Other stimulant use, unspecified, uncomplicated; I25.10 Atherosclerotic heart disease of native coronary artery without angina pectoris; R74.0 Nonspecific elevation of levels of transaminase and lactic acid dehydrogenase [LDH]; I47.1 Supraventricular tachycardia; N18.9 Chronic kidney disease, unspecified; Z59.0 Homelessness; Z82.49 Family history of ischemic heart disease and other diseases of the circulatory system; Z22.322 Carrier or suspected carrier of Methicillin resistant Staphylococcus aureus; Z28.21 Immunization not carried out because of patient refusal; Z68.28 Body mass index [BMI] 28.0-28.9, adult
CPT/HCPCS: 36245; 36569; 76937; 83605; 83735; 84100; 84132; 85007; 87040; 87081; 93005; 93306; 93460; 93970; 93971; 94660; 96365; 96366; 96375; 99285; J0153; J0282; J1644; J1940; J2250; J2260; J2543; J3010; J3475; J3490; J7040; J7050; J7060; Q9967

== ENCOUNTER 2017-11-01 13:01 | Emergency (ER) | payer OTHER ==
[~2017-11-01] VITALS: Ht 180.3 cm; Wt 92.5 kg
[~2017-11-01 13:01] MED LIST: AMIO200T44 PO; ASPI-1182 PO; ATOR20TA86 PO; BUME1TAB17 PO; IVAB5TAB PO; LISI-660 PO
[2017-11-01] MEDS ORDERED: KETOROLAC TROMETHAMINE 60 MG/2 ML VIAL IM ONE (15:45)
[2017-11-01 16:18] VITALS: BP 141/88
== END 2017-11-01 16:22 | disposition home or self-care (01) ==
LOC: EMS 13:06
DX: M25.561 Pain in right knee (principal); M25.562 Pain in left knee; M25.542 Pain in joints of left hand; M25.541 Pain in joints of right hand; I11.0 Hypertensive heart disease with heart failure; I50.9 Heart failure, unspecified; Z79.82 Long term (current) use of aspirin
CPT/HCPCS: 96372; 99283; J1885

== ENCOUNTER 2018-02-05 10:48 | Emergency (ER) | payer OTHER ==
[~2018-02-05] VITALS: Ht 180.3 cm; Wt 100.0 kg
[~2018-02-05 10:48] MED LIST changes: -IVAB5TAB PO
[2018-02-05] MEDS ORDERED: ALLO100T PO (11:21)
[2018-02-05] MEDS ORDERED: CARV6 PO (11:21)
[2018-02-05] MEDS ORDERED: COLCHICINE 0.6 MG TABLET PO ONE (15:15)
[2018-02-05 16:52] VITALS: BP 136/78
== END 2018-02-05 16:55 | disposition home or self-care (01) ==
LOC: EMS 10:50
DX: M10.9 Gout, unspecified (principal); M79.641 Pain in right hand; M79.672 Pain in left foot; I11.0 Hypertensive heart disease with heart failure; I50.9 Heart failure, unspecified; M19.90 Unspecified osteoarthritis, unspecified site; Z79.82 Long term (current) use of aspirin; G89.29 Other chronic pain
CPT/HCPCS: 99283

== ENCOUNTER 2018-10-11 16:28 | Inpatient (IN) | payer OTHER ==
[~2018-10-11] VITALS: Ht 180.3 cm; Wt 109.0 kg
[~2018-10-11 16:28] MED LIST changes: +ALLO100T PO; -AMIO200T44 PO; +CARV6 PO
[2018-10-11 17:29] LABS: BASOPHILS % (AUTO) 0.8 % (0.0-2.0); EOSINOPHILS % (AUTO) 0.5 % (1.0-6.0); HEMATOCRIT 28.7 % (41-53); HEMOGLOBIN 9.4 g/dL (13.5-17.5); LYMPHOCYTES # (AUTO) 1.8 K/uL (1.0-4.8); LYMPHOCYTES % (AUTO) 10.7 % (22.0-44.0); MEAN CORPUSCULAR HEMOGLOBIN 27.2 pg (26.0-34.0); MEAN CORPUSCULAR HGB CONC 32.7 G/dL (31.0-37.0); MEAN CORPUSCULAR VOLUME 83 fL (80-100); MONOCYTES # (AUTO) 1.2 K/uL (0.1-1.0); MONOCYTES % (AUTO) 7.2 % (2.0-9.0); NEUTROPHILS # (AUTO) 13.4 K/uL (1.8-7.7); NEUTROPHILS % (AUTO) 80.8 % (40.0-70.0); PLATELET COUNT (AUTO) 565 K/uL (150-450); RED BLOOD CELL COUNT(AUTO) 3.45 MIL/uL (4.50-5.90); RED CELL DISTRIBUTION WIDTH 16.6 % (11.5-14.5)
[2018-10-11] MEDS ORDERED: KETOROLAC TROMETHAMINE 30 MG/ML VIAL IVP ONE (17:30)
[2018-10-11] MEDS ORDERED: COLCHICINE 0.6 MG TABLET PO ONE ×2 (17:30→18:30)
[2018-10-11] MEDS ORDERED: HYDROCODONE/ACETAMINOPHEN 10-325 MG TABLET PO ONE (17:30)
[2018-10-11 17:49] LABS: CALCIUM, TOTAL 9.1 mg/dL (8.8-10.5); CREATININE 1.57 mg/dL (0.60-1.30); POTASSIUM 4.6 mmol/L (3.5-5.1)
[2018-10-11 18:13] LABS: ALBUMIN 3.1 g/dL (3.4-5.0); BILIRUBIN,TOTAL 0.3 mg/dL (0.1-1.0); TOTAL PROTEIN, SERUM 10.1 g/dL (6.4-8.2)
[2018-10-11] MEDS ORDERED: ACETAMINOPHEN 325 MG TABLET PO PRN ×2 (19:45→22:45)
[2018-10-11] MEDS ORDERED: ONDANSETRON HCL 4 MG/2 ML VIAL IVP PRN ×2 (19:45→22:45)
[2018-10-11] MEDS ORDERED: MORPHINE SULFATE 4 MG/ML SYRINGE IVP PRN ×2 (19:45→22:45)
[2018-10-11] MEDS ORDERED: HYDROCODONE/ACETAMINOPHEN 5-325 MG TABLET PO PRN ×2 (19:45→22:45)
[2018-10-11 21:00] VITALS: BP 136/81
[2018-10-11] MEDS ORDERED: MAGNESIUM HYDROXIDE SUSPENSION 30 ML UDCUP PO PRN (22:45)
[2018-10-11] MEDS ORDERED: ZOLPIDEM TARTRATE 5 MG TABLET PO PRN (22:45)
[2018-10-11] MEDS ORDERED: BISACODYL 10 MG RECTAL RECTAL SUPPOSITORY PR PRN (22:45)
[2018-10-11] MEDS: HEPARIN SODIUM,PORCINE 5,000 UNITS/ML VIAL SQ SCH (23:02)
[2018-10-11 23:03] VITALS: BP 127/83
[2018-10-12] VITALS (7 sets, daily range): BP systolic 125–142; BP diastolic 66–82
[2018-10-12] MEDS ORDERED: ATORVASTATIN CALCIUM 20 MG TABLET PO SCH (05:00)
[2018-10-12] MEDS: IBUPROFEN 400 MG TABLET PO SCH ×4 (08:00→23:27)
[2018-10-12] MEDS: PANTOPRAZOLE SODIUM 40 MG DR TABLET PO SCH (09:45)
[2018-10-12] MEDS: DOCUSATE SODIUM 100 MG CAPSULE PO SCH ×2 (09:45→20:11)
[2018-10-12] MEDS: ASPIRIN 81 MG EC TABLET PO SCH (09:45)
[2018-10-12] MEDS: COLCHICINE 0.6 MG TABLET PO SCH ×3 (09:46→20:11)
[2018-10-12] MEDS: CARVEDILOL 6.25 MG TABLET PO SCH (09:46)
[2018-10-12] MEDS: LISINOPRIL 5 MG TABLET PO SCH (09:46)
[2018-10-12] MEDS: BUMETANIDE 1 MG TABLET PO SCH ×2 (09:46→20:11)
[2018-10-12] MEDS: ALLOPURINOL 100 MG TABLET PO SCH (09:47)
[2018-10-12] MEDS: PredniSONE 20 MG TABLET PO SCH (09:47)
[2018-10-12] MEDS: HEPARIN SODIUM,PORCINE 5,000 UNITS/ML VIAL SQ SCH ×3 (09:48→23:25)
[2018-10-12 16:38] LABS: APPEARANCE,URINE CLEAR (CLEAR); BILIRUBIN,URINE NEGATIVE (NEGATIVE); GLUCOSE, URINE (UA) NEGATIVE (NEGATIVE); KETONES,URINE NEGATIVE (NEGATIVE); LEUKOCYTE ESTERASE ,URINE NEGATIVE (NEGATIVE); NITRATE,URINE NEGATIVE (NEGATIVE); OCCULT BLOOD,URINE SMALL (NEGATIVE); PH,URINE 5.5 (5.0-8.0); PROTEIN,URINE POS 1+ (NEGATIVE)
[2018-10-12 17:07] LABS: BACTERIA,URINE Few /HPF (None Seen); RBC,URINE 0-2 /HPF (0-2)
[2018-10-12 17:08] LABS: MUCUS,URINE Few LPF (None Seen); SQUAMOUS EPITHELIAL CELL,UR Few /LPF (None Seen)
[2018-10-12] MEDS: ATORVASTATIN CALCIUM 20 MG TABLET PO SCH (20:11)
[2018-10-13] VITALS (8 sets, daily range): BP systolic 121–155; BP diastolic 73–81
[2018-10-13 06:31] LABS: BASOPHILS % (AUTO) 0.5 % (0.0-2.0); EOSINOPHILS % (AUTO) 0 % (1.0-6.0); HEMATOCRIT 27.7 % (41-53); HEMOGLOBIN 9.5 g/dL (13.5-17.5); LYMPHOCYTES # (AUTO) 2.1 K/uL (1.0-4.8); LYMPHOCYTES % (AUTO) 15.1 % (22.0-44.0); MEAN CORPUSCULAR HEMOGLOBIN 28.4 pg (26.0-34.0); MEAN CORPUSCULAR HGB CONC 34.1 G/dL (31.0-37.0); MEAN CORPUSCULAR VOLUME 83 fL (80-100); MONOCYTES # (AUTO) 0.5 K/uL (0.1-1.0); MONOCYTES % (AUTO) 3.6 % (2.0-9.0); NEUTROPHILS # (AUTO) 11.3 K/uL (1.8-7.7); NEUTROPHILS % (AUTO) 80.8 % (40.0-70.0); PLATELET COUNT (AUTO) 548 K/uL (150-450); RED BLOOD CELL COUNT(AUTO) 3.33 MIL/uL (4.50-5.90); RED CELL DISTRIBUTION WIDTH 16.2 % (11.5-14.5)
[2018-10-13 06:45] LABS: ANION GAP 10 mmol/L (8-16); CARBON DIOXIDE 26 mmol/L (22-29); CHLORIDE 98 mmol/L (98-107); CREATININE 1.23 mg/dL (0.60-1.30); GLOMERULAR FILTR. RATE CALC > 60 mL/min (>60); GLUCOSE,RANDOM 119 mg/dL (70-110); SODIUM SERUM 134 mmol/L (136-145); UREA NITROGEN, BLOOD 27 mg/dL (7-18)
[2018-10-13] MEDS: LISINOPRIL 5 MG TABLET PO SCH (08:24)
[2018-10-13] MEDS: PredniSONE 20 MG TABLET PO SCH (08:24)
[2018-10-13] MEDS: BUMETANIDE 1 MG TABLET PO SCH ×2 (08:25→20:19)
[2018-10-13] MEDS: ASPIRIN 81 MG EC TABLET PO SCH (08:25)
[2018-10-13] MEDS: IBUPROFEN 400 MG TABLET PO SCH ×3 (08:25→23:39)
[2018-10-13] MEDS: HEPARIN SODIUM,PORCINE 5,000 UNITS/ML VIAL SQ SCH ×3 (08:25→23:39)
[2018-10-13] MEDS: ALLOPURINOL 100 MG TABLET PO SCH (08:25)
[2018-10-13] MEDS: CARVEDILOL 6.25 MG TABLET PO SCH (08:25)
[2018-10-13] MEDS: DOCUSATE SODIUM 100 MG CAPSULE PO SCH ×2 (08:26→20:18)
[2018-10-13] MEDS: COLCHICINE 0.6 MG TABLET PO SCH ×3 (08:26→20:18)
[2018-10-13] MEDS: PANTOPRAZOLE SODIUM 40 MG DR TABLET PO SCH (08:26)
[2018-10-13] MEDS: ATORVASTATIN CALCIUM 20 MG TABLET PO SCH (20:18)
[2018-10-14 04:00] VITALS: BP 138/79
[2018-10-14 05:27] LABS: EOSINOPHILS % (AUTO) 0 % (1.0-6.0); HEMATOCRIT 30.1 % (41-53); HEMOGLOBIN 9.5 g/dL (13.5-17.5); LYMPHOCYTES % (AUTO) 18.6 % (22.0-44.0); MEAN CORPUSCULAR HEMOGLOBIN 26.2 pg (26.0-34.0); MEAN CORPUSCULAR HGB CONC 31.4 G/dL (31.0-37.0); MEAN CORPUSCULAR VOLUME 84 fL (80-100); MONOCYTES # (AUTO) 0.9 K/uL (0.1-1.0); MONOCYTES % (AUTO) 5.4 % (2.0-9.0); NEUTROPHILS # (AUTO) 12.1 K/uL (1.8-7.7); PLATELET COUNT (AUTO) 542 K/uL (150-450); RED BLOOD CELL COUNT(AUTO) 3.61 MIL/uL (4.50-5.90); RED CELL DISTRIBUTION WIDTH 16.2 % (11.5-14.5)
[2018-10-14 05:37] LABS: CALCIUM, TOTAL 8.4 mg/dL (8.8-10.5); CREATININE 1.4 mg/dL (0.60-1.30)
[2018-10-14 08:16] VITALS: BP 138/90
[2018-10-14] MEDS: DOCUSATE SODIUM 100 MG CAPSULE PO SCH ×2 (08:42→20:23)
[2018-10-14] MEDS: IBUPROFEN 400 MG TABLET PO SCH ×2 (08:42→16:15)
[2018-10-14] MEDS: ASPIRIN 81 MG EC TABLET PO SCH (08:42)
[2018-10-14] MEDS: LISINOPRIL 5 MG TABLET PO SCH (08:42)
[2018-10-14] MEDS: PredniSONE 20 MG TABLET PO SCH (08:43)
[2018-10-14] MEDS: COLCHICINE 0.6 MG TABLET PO SCH ×3 (08:43→20:22)
[2018-10-14] MEDS: CARVEDILOL 6.25 MG TABLET PO SCH (08:43)
[2018-10-14] MEDS: BUMETANIDE 1 MG TABLET PO SCH ×2 (08:43→20:22)
[2018-10-14] MEDS: PANTOPRAZOLE SODIUM 40 MG DR TABLET PO SCH (08:43)
[2018-10-14] MEDS: ALLOPURINOL 100 MG TABLET PO SCH (08:43)
[2018-10-14] MEDS: HEPARIN SODIUM,PORCINE 5,000 UNITS/ML VIAL SQ SCH ×2 (08:44→16:15)
[2018-10-14] MEDS ORDERED: COLC0.6T67 PO (11:03)
[2018-10-14] MEDS ORDERED: PRED20 PO (11:03)
[2018-10-14] MEDS ORDERED: IBUP-1506 PO (11:03)
[2018-10-14] MEDS ORDERED: OMEP20 PO (11:04)
[2018-10-14 11:15] VITALS: BP 130/76
[2018-10-14 15:30] VITALS: BP 130/78
[2018-10-14 19:22] VITALS: BP 125/81
[2018-10-14] MEDS: ATORVASTATIN CALCIUM 20 MG TABLET PO SCH (20:22)
[2018-10-15 00:13] VITALS: BP 134/69
[2018-10-15] MEDS: IBUPROFEN 400 MG TABLET PO SCH ×2 (00:16→08:39)
[2018-10-15] MEDS: HEPARIN SODIUM,PORCINE 5,000 UNITS/ML VIAL SQ SCH ×2 (00:16→08:38)
[2018-10-15 05:59] VITALS: BP 120/76
[2018-10-15 06:13] LABS: BASOPHILS % (AUTO) 0.6 % (0.0-2.0); EOSINOPHILS % (AUTO) 0.1 % (1.0-6.0); HEMOGLOBIN 9.7 g/dL (13.5-17.5); LYMPHOCYTES # (AUTO) 3.5 K/uL (1.0-4.8); LYMPHOCYTES % (AUTO) 19.1 % (22.0-44.0); MEAN CORPUSCULAR HGB CONC 32.3 G/dL (31.0-37.0); MEAN CORPUSCULAR VOLUME 84 fL (80-100); MONOCYTES # (AUTO) 0.9 K/uL (0.1-1.0); NEUTROPHILS # (AUTO) 13.8 K/uL (1.8-7.7); NEUTROPHILS % (AUTO) 75.2 % (40.0-70.0); PLATELET COUNT (AUTO) 559 K/uL (150-450); RED BLOOD CELL COUNT(AUTO) 3.58 MIL/uL (4.50-5.90); RED CELL DISTRIBUTION WIDTH 16.7 % (11.5-14.5)
[2018-10-15 06:25] LABS: CALCIUM, TOTAL 8.6 mg/dL (8.8-10.5); CREATININE 1.5 mg/dL (0.60-1.30)
[2018-10-15 07:53] VITALS: BP 144/90
[2018-10-15] MEDS ORDERED: SODIUM CHLORIDE 0.9% 500 ML IV ONE (08:15)
[2018-10-15] MEDS: BUMETANIDE 1 MG TABLET PO SCH (08:37)
[2018-10-15] MEDS: CARVEDILOL 6.25 MG TABLET PO SCH (08:38)
[2018-10-15] MEDS: DOCUSATE SODIUM 100 MG CAPSULE PO SCH (08:38)
[2018-10-15] MEDS: LISINOPRIL 5 MG TABLET PO SCH (08:38)
[2018-10-15] MEDS: PANTOPRAZOLE SODIUM 40 MG DR TABLET PO SCH (08:38)
[2018-10-15] MEDS: ALLOPURINOL 100 MG TABLET PO SCH (08:38)
[2018-10-15] MEDS: ASPIRIN 81 MG EC TABLET PO SCH (08:39)
[2018-10-15] MEDS ORDERED: COLCHICINE 0.6 MG TABLET PO SCH (09:00)
[2018-10-15] MEDS ORDERED: PredniSONE 20 MG TABLET PO SCH (09:00)
[2018-10-15 12:08] VITALS: BP 139/87
== END 2018-10-15 16:10 | disposition home or self-care (01) | DRG 351 ==
LOC: EMS 16:29 → 4E 20:00 → 6N 10-12 16:35
PROVIDERS: ADMIT Internal Medicine; ATTEND Internal Medicine
DX: M10.9 Gout, unspecified (principal); I13.0 Hypertensive heart and chronic kidney disease with heart failure and stage 1 through stage 4 chronic kidney disease, or unspecified chronic kidney disease; I50.9 Heart failure, unspecified; I42.9 Cardiomyopathy, unspecified; M19.90 Unspecified osteoarthritis, unspecified site; N18.9 Chronic kidney disease, unspecified; E78.5 Hyperlipidemia, unspecified; D64.9 Anemia, unspecified; Z91.19 Patient's noncompliance with other medical treatment and regimen; Z79.82 Long term (current) use of aspirin; Z79.899 Other long term (current) drug therapy
CPT/HCPCS: 87081; 93005; 96374; 97116; 97163; 97530; G0378; J1644; J1885; J7040